=== PATIENT | male | born 1995 | race Caucasian/White ===

== ENCOUNTER → 2023-07-03 13:32 | Outpatient (BNVA) | payer BC, SELFPAY | PROVIDERS: Family Provider Family Medicine; Visit Provider Nurse Practitioner Family | DX: R43.2 Parageusia (principal); R68.89 Other general symptoms and signs | CPT/HCPCS: 87426 ==

== ENCOUNTER 2024-05-05 18:36 | Emergency (ER) | payer BC, SELFPAY ==
[2024-05-05 18:39] VITALS: BP 133/83; PULSE 83; RESP 18; TEMP 36.8; O2SAT 98
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
[2024-05-05 19:09] VITALS: BP 144/86; PULSE 64; RESP 16; O2SAT 100
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
[2024-05-05 19:30] VITALS: BP 139/80; PULSE 77; O2SAT 99
[2024-05-05 20:00] VITALS: BP 136/76; PULSE 76; RESP 18; O2SAT 99
[2024-05-05 20:36] VITALS: BP 128/80; PULSE 86; O2SAT 97
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
== END 2024-05-05 20:38 | disposition home or self-care (01) ==
PROVIDERS: Emergency Provider Emergency Medicine; PCP Nurse Practitioner
DX: S62.323A Displaced fracture of shaft of third metacarpal bone, left hand, initial encounter for closed fracture (principal); V43.63XA Car passenger injured in collision with pick-up truck in traffic accident, initial encounter; Y92.410 Unspecified street and highway as the place of occurrence of the external cause
CPT/HCPCS: 29125; 73130; 99283

== ENCOUNTER 2024-05-08 06:00 | Outpatient (CLI) | payer BC, SELFPAY | END 2024-05-08 23:59 | disposition home or self-care (01) | LOC: SPT 05-11 10:27 | PROVIDERS: Visit Provider Specialist | DX: Z46.89 Encounter for fitting and adjustment of other specified devices (principal); S62.308S Unspecified fracture of other metacarpal bone, sequela; S62.511S Displaced fracture of proximal phalanx of right thumb, sequela; X58.XXXS Exposure to other specified factors, sequela | CPT/HCPCS: L3809; L3984 ==

== ENCOUNTER → 2024-05-08 09:33 | Outpatient (BNVA) | payer BC, SELFPAY | PROVIDERS: PCP Nurse Practitioner; Visit Provider Specialist | DX: S62.323A Displaced fracture of shaft of third metacarpal bone, left hand, initial encounter for closed fracture (principal); S62.514A Nondisplaced fracture of proximal phalanx of right thumb, initial encounter for closed fracture; X58.XXXA Exposure to other specified factors, initial encounter | CPT/HCPCS: 73130 ==

== ENCOUNTER → 2024-06-01 14:51 | Outpatient (BNVA) | payer BC, SELFPAY | PROVIDERS: Visit Provider Specialist | DX: S62.514D Nondisplaced fracture of proximal phalanx of right thumb, subsequent encounter for fracture with routine healing; S62.323D Displaced fracture of shaft of third metacarpal bone, left hand, subsequent encounter for fracture with routine healing; X58.XXXD Exposure to other specified factors, subsequent encounter | CPT/HCPCS: 73130 ==

== ENCOUNTER → 2024-06-15 15:03 | Outpatient (BNVA) | payer BC, SELFPAY | PROVIDERS: PCP Nurse Practitioner; Visit Provider Specialist | DX: S62.514D Nondisplaced fracture of proximal phalanx of right thumb, subsequent encounter for fracture with routine healing (principal); S62.323D Displaced fracture of shaft of third metacarpal bone, left hand, subsequent encounter for fracture with routine healing; X58.XXXD Exposure to other specified factors, subsequent encounter | CPT/HCPCS: 73130 ==

== ENCOUNTER 2024-06-25 11:33 | Outpatient (RCR) | payer BC, SELFPAY | END 2024-07-04 23:59 | disposition home or self-care (01) | LOC: SOT 11:33 | PROVIDERS: PCP Nurse Practitioner; Visit Provider Specialist | DX: S62.323D Displaced fracture of shaft of third metacarpal bone, left hand, subsequent encounter for fracture with routine healing (principal); X58.XXXD Exposure to other specified factors, subsequent encounter | CPT/HCPCS: 97110; 97166 ==

== ENCOUNTER 2024-07-05 06:00 | Outpatient (RCR) | payer BC, SELFPAY | END 2024-08-04 23:59 | disposition home or self-care (01) | LOC: SOT 06:00 | PROVIDERS: PCP Nurse Practitioner; Visit Provider Specialist | DX: S62.323D Displaced fracture of shaft of third metacarpal bone, left hand, subsequent encounter for fracture with routine healing (principal); X58.XXXD Exposure to other specified factors, subsequent encounter | CPT/HCPCS: 97022; 97110; 97140 ==

== ENCOUNTER → 2024-07-06 14:11 | Outpatient (BNVA) | payer BC, SELFPAY | PROVIDERS: PCP Nurse Practitioner; Visit Provider Specialist | DX: S62.323D Displaced fracture of shaft of third metacarpal bone, left hand, subsequent encounter for fracture with routine healing (principal); S62.514D Nondisplaced fracture of proximal phalanx of right thumb, subsequent encounter for fracture with routine healing; X58.XXXD Exposure to other specified factors, subsequent encounter | CPT/HCPCS: 73130 ==